=== PATIENT | female | born 1990 | race Caucasian/White ===

== ENCOUNTER 2017-12-06 07:36 | Emergency (ER) | payer SELFPAY ==
--- NOTE | 2017-12-06 08:22 | UC ---
Throat Pain/Nasal Leonid HPI - HPI Summary HPI Summary: 27 yo WF presents with sinus pain/pressure/congestion that began 1 week ago and has been getting progressively worse. Has been taking mucinex with no relief. Denies fever, chills, cough, sore throat, SOB, chest pain. - History of Current Complaint Chief Complaint: UCGeneralIllness Stated Complaint: SORE THROAT COUGH Time Seen by Provider: 12/06/17 08:21 Hx Obtained From: Patient Hx Last Menstrual Period: 12/05/17 Onset/Duration: Gradual Onset Severity: Moderate Pain Intensity: 7 Pain Scale Used: 0-10 Numeric - Allergies/Home Medications Allergies/Adverse Reactions: Allergies Allergy/AdvReac Type Severity Reaction Status Date / Time No Known Allergies Allergy Verified 12/06/17 07:47 Home Medications: Home Medications Benzonatate CAP* [Tessalon 100 MG CAP*] 1 tab PO TID PRN 12/06/17 [History Confirmed 12/06/17] Ibuprofen TAB* [Advil TAB*] 400 mg PO Q6HR PRN 12/06/17 [History Confirmed 12/06] Pectin [Throat Drops] 1 drop PO Q2HR PRN 12/06/17 [History Confirmed 12/06/17] Phenylephrine/Dm/Acetaminop/GG [Mucinex Fast-Max Hdal-Hrw-Pxmz] 2 tab PO Q4HR PRN 12/06/17 [History Confirmed 12/06/17] PMH/Surg Hx/FS Hx/Imm Hx - Additional Past Medical History Additional PMH: None Previously Healthy: Yes - Surgical History Surgical History: None - Family History Known Family History: Positive: None - Social History Occupation: Employed Full-time Lives: With Family Alcohol Use: Weekly Substance Use Type: None Smoking Status (MU): Never Smoked Tobacco Review of Systems Constitutional: Negative Skin: Negative Eyes: Negative ENT: Nasal Discharge, Sinus Congestion, Sinus Pain/Tenderness Respiratory: Negative Cardiovascular: Negative Gastrointestinal: Negative Neurovascular: Negative Neurological: Negative Psychological: Negative All Other Systems Reviewed And Are Negative: Yes Physical Exam - Summary Physical Exam Summary: GENERAL: NAD. WDWN HEENT: NC/AT. Conjunctiva clear without inflammation or discharge. TMs intact , no bulging, erythema, or edema. Nasal mucosa mildly swollen and erythematous with yellow discharge. TTP maxillary and frontal sinus. Posterior oropharynx without exudates, erythema, or tonsillar enlargement. Uvula midline. NECK: Supple without lymphadenopathy CHEST: CTAB. No r/r/w. No accessory muscle use. Breathing comfortably and in no distress. CV: RRR. Without m/r/g. Pulses intact. SKIN: No rashes, sores, lesions, or open wounds. NEURO: Alert. CN II-XII grossly intact. PSYCH: Age appropriate behavior. Triage Information Reviewed: Yes Vital Signs: Initial Vital Signs Temp 98.3 F 12/06/17 07:49 Pulse 84 12/06/17 07:49 Resp 18 12/06/17 07:49 BP 137/97 12/06/17 07:49 Pulse Ox 99 12/06/17 07:49 Throat Pain/Nasal Course/Dx - Course Course Of Treatment: Sinusitis - Differential Dx/Diagnosis Provider Diagnoses: Sinusitis Discharge - Sign-Out/Discharge Documenting (check all that apply): Discharge/Admit/Transfer - Discharge Plan Condition: Stable Disposition: HOME Prescriptions: Amoxicillin PO (*) [Amoxicillin 500 MG CAP*] 500 mg PO Q12H #14 cap Patient Education Materials: Sinusitis (ED) Referrals: No Primary Care Phys,NOPCP [Primary Care Provider] - Additional Instructions: If you develop a fever, shortness of breath, chest pain, new or worsening symptoms - please call your PCP or go to the ED. - Billing Disposition and Condition Condition: STABLE Disposition: HOME
== END 2017-12-06 08:35 | disposition home or self-care (01) ==
LOC: UCEAST 07:36
DX: J32.9 Chronic sinusitis, unspecified (principal)
CPT/HCPCS: 99202; G0463